=== PATIENT | male | born 1995 | race Caucasian/White ===

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

== ENCOUNTER 2017-02-14 06:42 | Emergency (ER) | payer MEDICAID ==
[~2017-02-14] VITALS: Wt 57.0 kg
[2017-02-14] MEDS ORDERED: SOD CHLORIDE 0.9% 1,000 ML IV STA (06:55)
[2017-02-14] MEDS ORDERED: ONDANSETRON 4 MG INJ IV STA (06:55)
[2017-02-14] MEDS ORDERED: morphine 4 MG/ML VIAL IV STA (06:55)
--- NOTE | 2017-02-14 07:10 | ERD ---
ER Documentation Chief Complaint Date/Time DATE: 02/14/17 TIME: 07:04 Chief Complaint ap today, had appendectomy 2 years ago HPI This is a 21 year old male with history of appendectomy 2 years ago presenting to the emergency department complaining of right lower quadrant abdominal pain that started this morning. Patient rates the pain moderate in severity, constant and dull. Patient states that he has mild nausea and 2 episodes of nonbilious, non-bloody vomiting. He denies fevers, diarrhea, constipation. Patient states his last bowel movement was this morning and normal. Patient denies taking any medications for this. Patient was seen here in October and received a CT scan for right lower quadrant abdominal pain. He denies taking any medications ROS All systems reviewed and are negative except as per history of present illness. Medications Home Meds Active Scripts Docusate Sodium* (Colace*) 100 Mg Capsule, 100 MG PO BID, #10 CAP Prov:ISRAEL BRANNON PA-C 02/14/17 Ondansetron (Ondansetron Odt) 4 Mg Tab.rapdis, 4 MG PO Q6H Y for NAUSEA AND/OR VOMITING, #14 TAB Prov:ISRAEL BRANNON PA-C 02/14/17 Acetaminophen* (Tylenol*) 325 Mg Tablet, 2 TAB PO Q6 Y for PAIN AND OR ELEVATED TEMP, #30 TAB Prov:ISRAEL BRANNON PA-C 02/14/17 Cyclobenzaprine Hcl* (Cyclobenzaprine Hcl*) 10 Mg Tablet, 10 MG PO TID, #15 TAB Prov:BERRY OWENS NP 10/23/16 Docusate Sodium* (Colace*) 100 Mg Capsule, 100 MG PO TID, #30 CAP Prov:BERRY OWENS NP 10/23/16 Polyethylene Glycol* (Miralax*) 17 Gm Powd.pack, 17 GM PO DAILY, #7 Prov:BERRY OWENS NP 10/23/16 Ibuprofen* (Motrin*) 600 Mg Tab, 600 MG PO Q6H Y for PAIN AND OR ELEVATED TEMP, #30 TAB Prov:BERRY OWENS NP 10/23/16 Tramadol HCl (Tramadol HCl) 50 Mg Tablet, 50 MG PO Q6 Y for SEVERE PAIN LEVEL 7- 10, #20 TAB Prov:BERRY OWENS NP 10/23/16 Ibuprofen* (Motrin*) 600 Mg Tab, 600 MG PO Q6H Y for PAIN AND OR ELEVATED TEMP, #30 Prov:EUSEBIO FERREIRA MD 06/04/15 Allergies Allergies: Coded Allergies: No Known Allergy (Unverified , 06/04/15) PMhx/Soc History of Surgery: Yes (appendectomy) Hx Alcohol Use: No Hx Substance Use: No Hx Tobacco Use: No Physical Exam Vitals Vital Signs Date Time Temp Pulse Resp B/P Pulse Ox O2 Delivery O2 Flow Rate FiO2 02/14/17 08:15 98.4 58 18 104/50 100 02/14/17 06:47 97.7 53 18 111/54 99 Physical Exam GENERAL: well-developed/well-nourished, in no apparent distress, non-toxic appearing HENT: NC/AT, moist mucous membranes EYES: Conjunctiva normal NECK: Supple, no lymphadenopathy PULM: CTA bilaterally, no rales, rhonchi, or wheezing heard CV: Normal S1S2, RRR, good capillary refill GI: Soft, non-distended, mild tender palpation of the right lower quadrant Normal bowel sounds, no masses or organomegaly felt on exam No gross peritonitis, no bruits Negative Rovsing, negative Payne, negative McBurney's point, Negative CVAT BACK: No masses EXT: No clubbing, cyanosis, or edema NEURO: Alert and Orientated SKIN: Horizontal scar noted over the right lower quadrant PSYCH: Normal mood and mentation Result Diagram: 02/14/17 0700 02/14/17 0700 Results 24 hrs Laboratory Tests Test 02/14/17 07:00 White Blood Count 6.810^3/ul Red Blood Count 4.8610^6/ul Hemoglobin 14.6g/dl Hematocrit 44.7% Mean Corpuscular Volume 92.0fl Mean Corpuscular Hemoglobin 30.0pg Mean Corpuscular Hemoglobin Concent 32.7g/dl Red Cell Distribution Width 12.4% Platelet Count 87669^3/UL Mean Platelet Volume 10.2fl Neutrophils % 64.0% Lymphocytes % 26.6% Monocytes % 6.9% Eosinophils % 2.1% Basophils % 0.3% Nucleated Red Blood Cells % 0.0/100WBC Neutrophils # 4.310^3/ul Lymphocytes # 1.810^3/ul Monocytes # 0.510^3/ul Eosinophils # 0.110^3/ul Basophils # 0.010^3/ul Nucleated Red Blood Cells # 0.010^3/ul Urine Color LT. YELLOW Urine Clarity CLEAR Urine pH 6.0 Urine Specific [place] 1.025 Urine Ketones NEGATIVE Urine Nitrite NEGATIVE Urine Bilirubin NEGATIVE Urine Urobilinogen 0.2 E.U./dL Urine Leukocyte Esterase NEGATIVE Urine Hemoglobin NEGATIVE Urine Glucose NEGATIVE% Urine Total Protein NEGATIVE Sodium Level 144mmol/L Potassium Level 4.5mmol/L Chloride Level 105mmol/L Carbon Dioxide Level 28mmol/L Anion Gap 16 Blood Urea Nitrogen 14mg/dl Creatinine 0.71mg/dl Glucose Level 99mg/dl Calcium Level 9.4mg/dl Total Bilirubin 0.7mg/dl Direct Bilirubin 0.00mg/dl Indirect Bilirubin 0.7mg/dl Aspartate Amino Transf (AST/SGOT) 21IU/L Alanine Aminotransferase (ALT/SGPT) 31IU/L Alkaline Phosphatase 102IU/L Total Protein 7.8g/dl Albumin 5.2g/dl Globulin 2.60g/dl Albumin/Globulin Ratio 2.00 Lipase 151U/L Current Medications Medications (Trade) Dose Ordered Sig/Parker Route PRN Reason Start Time Stop Time Status Last Admin Dose Admin Sodium Chloride (NS) 1,000 ml @ 1,000 mls/hr Q1H STAT IV 02/14/17 06:55 02/14/17 07:54 DC 02/14/17 07:02 Morphine Sulfate (morphine) 4 mg ONCE STAT IV 02/14/17 06:55 02/14/17 06:56 DC 02/14/17 07:03 Ondansetron HCl (Zofran Inj) 4 mg ONCE STAT IV 02/14/17 06:55 02/14/17 06:56 DC 02/14/17 07:02 Procedures/[facility] This is a 21 year old male with history of appendectomy 2 years ago presenting to the emergency department complaining of right lower quadrant abdominal pain with associated nausea and mild nonbilious, nonbloody vomiting since this morning. On examination, patient is afebrile he appears well and nontoxic appearing. He does not seem to be in significant pain. I have reviewed patient 's past chart and he has been seen here in October for right lower quadrant abdominal pain and has received a CT scan which retained stool without obstruction. Since patient does not seem to be ill-appearing and in no significant pain, I have discussed the risks versus the benefits of a CT scan. Patient agreed to hold off on a CT scan. IV access established, patient was given 1 L fluids, morphine and Zofran. I have reassessed patient and he significantly feels better. Lab work was drawn. CBC did not show any evidence of leukocytosis or anemia. CMP did not show any evidence of renal, liver, or electrolyte abnormalities. Lipase was normal. UA did not show any evidence of hemoglobin or urinary tract infection. I have discussed with patient that he is appropriate to be discharged home with strict precautions to return to the emergency room in 8 hours if he continues to have pain or for any worsening signs or symptoms, or not improving as expected. Patient is stable for discharge for home. Patient understands and agrees with this plan. Departure Diagnosis: Primary Impression: Abdominal pain Condition: Stable ISRAEL BRANNON PA-C Feb 14, 2017 07:10
[2017-02-14 07:32] LABS: ADD SCAN DIFF NO
[2017-02-14 07:41] LABS: BASOPHILS % 0.3 % (0.0-2.0); EOSINOPHILS # 0.1 10^3/ul (0.0-0.5); EOSINOPHILS % 2.1 % (0.0-7.0); HEMATOCRIT 44.7 % (42.0-52.0); HEMOGLOBIN 14.6 g/dl (14.0-18.0); LYMPHOCYTES # 1.8 10^3/ul (0.8-2.9); LYMPHOCYTES % 26.6 % (18.0-55.0); MEAN CORPUSCULAR HGB CONC 32.7 g/dl (32.0-37.0); MEAN PLATELET VOLUME 10.2 fl (7.4-10.4); MONOCYTE # 0.5 10^3/ul (0.3-0.9); MONOCYTES % 6.9 % (0.0-13.0); NEUTROPHIL # 4.3 10^3/ul (1.6-7.5); PLATELET COUNT 251 10^3/UL (140-415); RED BLOOD COUNT 4.86 10^6/ul (4.70-6.10); RED CELL DISTRIBUTION WIDTH 12.4 % (11.5-14.5); WHITE BLOOD COUNT 6.8 10^3/ul (4.8-10.8)
[2017-02-14 07:52] LABS: ADD UMIC NO; URINE BILIRUBIN (Dip) NEGATIVE (NEGATIVE); URINE BLOOD (Dip) NEGATIVE (NEGATIVE); URINE COLOR LT. YELLOW (YELLOW); URINE GLUCOSE (Dip) NEGATIVE (NEGATIVE); URINE KETONES (Dip) NEGATIVE (NEGATIVE); URINE LEUKOCYTE ESTERASE (Dip) NEGATIVE (NEGATIVE); URINE NITRITE (Dip) NEGATIVE (NEGATIVE); URINE TOTAL PROTEIN (Dip) NEGATIVE (NEGATIVE); URINE UROBILINOGEN (Dip) 0.2 E.U./dL (0.1-1.0)
[2017-02-14 08:00] LABS: ALBUMIN 5.2 g/dl (3.3-4.9); BILIRUBIN,INDIRECT 0.7 mg/dl (0-1.1); BILIRUBIN,TOTAL 0.7 mg/dl (0.2-1.3); CALCIUM 9.4 mg/dl (8.4-10.2); CREATININE 0.71 mg/dl (0.61-1.24); POTASSIUM 4.5 mmol/L (3.5-5.1); TOTAL PROTEIN 7.8 g/dl (6.1-8.1)
[2017-02-14] MEDS ORDERED: ONDA4TAB14 PO (08:07)
[2017-02-14] MEDS ORDERED: DOCU-144 PO (08:07)
[2017-02-14] MEDS ORDERED: ACET325T33 PO (08:07)
[2017-02-14 08:15] VITALS: BP 104/50; PULSE 58; RESP 18; TEMP 98.4
== END 2017-02-14 08:15 | disposition home or self-care (01) ==
LOC: FTE 06:42
DX: R10.31 Right lower quadrant pain (principal); R11.10 Vomiting, unspecified
CPT/HCPCS: 36415; 80053; 81003; 83690; 85025; 96361; 96374; 96375; J2270; J2405; J7030; Z7502